=== PATIENT | male | born 1960 | race African-American/Black ===

== ENCOUNTER 2017-08-08 15:33 | Emergency (ER) | payer BC ==
--- NOTE | 2017-08-08 15:44 | PDOC ---
Rapid Medical Evaluation Chief Complaint: Shortness of Breath Medical Evaluation: Allergies Allergy/AdvReac Type Severity Reaction Status Date / Time No Known Allergies Allergy Verified 08/08/17 15:41 08/08/17 15:42 I have performed a brief in-person evaluation of this patient. The patient presents with a chief complaint of: cough w/ congestion and hoarseness. H/o DM, amylodosis Pertinent physical exam findings: Stable w/ clear chest/lungs I have ordered the following:cxr The patient will proceed to the ED for further evaluation.
[2017-08-08 15:45] VITALS: BP 157/96; PULSE 83; TEMP 97.9; BMI 37.8
[2017-08-08] MEDS ORDERED: ALBUTEROL SO4 2.5/IPRATROPIUM 0.5 INH SOL 3 ML VIAL.NEB. NEB ONE ×2 (17:10→17:14)
--- NOTE | 2017-08-08 17:16 | PDOC ---
History of Present Illness - General Chief Complaint: Shortness of Breath Stated Complaint: SOB, COUGH Time Seen by Provider: 08/08/17 17:00 History Source: Patient Exam Limitations: No Limitations - History of Present Illness Initial Comments: 08/08/17 17:11 56 yr male IDDM, HTN, high cholesterol c/o cough chest congestion for 3 days no fever no chest pain. Timing/Duration: reports: getting worse Severity: reports: moderate Past History - Past Medical History Allergies/Adverse Reactions: Allergies Allergy/AdvReac Type Severity Reaction Status Date / Time No Known Allergies Allergy Verified 08/08/17 15:41 Home Medications: Ambulatory Orders Albuterol Sulfate Inhaler - [Ventolin HFA Inhaler -] 1 - 2 inh PO Q4H #1 inhaler 08/08/17 Amlodipine Bes/Olmesartan Med [Natalia 10-40 mg Tablet] 1 each PO DAILY 08/08/17 Benzonatate [Tessalon Pearls -] 200 mg PO TID PRN #42 cap 08/08/17 Brimonidine Tartrate/Timolol [Combigan Eye Drops] 5 ml OP ASDIR 08/08/17 Furosemide [Lasix -] 40 mg PO DAILY 08/08/17 Gabapentin 300 mg PO TID 08/08/17 Hydrocortisone 2.5% Lotion [Hytone 2.5% Lotion -] 1 applic TP BID #1 bottle Hydroxyzine HCl [Atarax -] 25 mg PO TID PRN #21 tablet 08/08/17 Insulin (Novolog) [Novolog] 0 units SQ BID 08/08/17 CVA: No COPD: No DVT: No Diabetes: Yes HTN: Yes Hypercholesterolemia: Yes Other medical history: Amyloidosis - Immunization History Immunization Up to Date: Yes - Suicide/Smoking/Psychosocial Hx Smoking Status: No Smoking History: Never smoked Have you smoked in the past 12 months: No Number of Cigarettes Smoked Daily: 0 Information on smoking cessation initiated: No Hx Alcohol Use: No Drug/Substance Use Hx: No Substance Use Type: None Respiratory Specific PMHX - Complaint Specific PMHX Angina: No Bronchitis: No Pneumonia: No Pulmonary Embolus: No TB (Tuberculosis): No Review of Systems - Review of Systems Able to Perform ROS?: Yes Is the patient limited Spanish proficient: No Constitutional: No: Symptoms Reported HEENTM: No: Symptoms Reported Respiratory: Yes: See HPI, Cough Cardiac (ROS): No: Symptoms Reported ABD/GI: No: Symptoms Reported : No: Symptoms Reported Musculoskeletal: No: Symptoms Reported *Physical Exam - Vital Signs Last Vital Signs Temp Pulse Resp BP Pulse Ox 97.9 F 83 16 157/96 97 08/08/17 15:41 08/08/17 15:41 08/08/17 15:41 08/08/17 15:41 08/08/17 15:41 - Physical Exam General Appearance: Yes: Nourished, Appropriately Dressed HEENT: positive: EOMI, CAMILA, TMs Normal, Pharynx Normal Neck: positive: Supple. negative: Tender Respiratory/Chest: positive: Lungs Clear, Normal Breath Sounds, Decreased Breath Sounds Cardiovascular: positive: Regular Rhythm, Regular Rate Gastrointestinal/Abdominal: positive: Normal Bowel Sounds Musculoskeletal: positive: Normal Inspection Extremity: positive: Normal Capillary Refill, Normal Inspection, Normal Range of Motion Integumentary: positive: Normal Color, Dry, Warm, Rash (upper back with fine maculopapular erythemtous rash ) Neurologic: positive: Fully Oriented, Alert, Normal Mood/Affect, Normal Response , Motor Strength 5/5 Medical Decision Making - Medical Decision Making 08/08/17 17:17 cc: cough chest congestion itchy rash to upper back for 2 days will give duoneb, decreased BS bilaterally CXR ordered from triage. 08/08/17 17:33 lungs CTA improved after the nebulizer dc inst given all questions asked and answered at discharge pt agrees with the plan of care *DC/Admit/Observation/Transfer Diagnosis at time of Disposition: Bronchitis - Discharge Dispostion Disposition: HOME Condition at time of disposition: Good - Prescriptions Prescriptions: Albuterol Sulfate Inhaler - [Ventolin HFA Inhaler -] 1 - 2 inh PO Q4H #1 inhaler Benzonatate [Tessalon Pearls -] 200 mg PO TID PRN #42 cap PRN Reason: Cough Hydrocortisone 2.5% Lotion [Hytone 2.5% Lotion -] 1 applic TP BID #1 bottle Hydroxyzine HCl [Atarax -] 25 mg PO TID PRN #21 tablet PRN Reason: itching - Referrals Referrals: Angel Keith MD [Primary Care Provider] - - Patient Instructions Additional Instructions: use the inhaler as directed for the next fee days take the cough medicine as directed drink pleanty of fluids to stay hydrated follow with your doctor if symptoms are worsening or persist - Post Discharge Activity
== END 2017-08-08 17:30 | disposition home or self-care (01) ==
LOC: JER 15:33 → JERFT 15:33
PROC: 3E0F7GC Introduction of Other Therapeutic Substance into Respiratory Tract, Via Natural or Artificial Opening (ICD-10-PCS; principal; 2017-08-08)
DX: J20.9 Acute bronchitis, unspecified (principal); I10 Essential (primary) hypertension; E10.9 Type 1 diabetes mellitus without complications; Z79.4 Long term (current) use of insulin; E78.00 Pure hypercholesterolemia, unspecified; E85.9 Amyloidosis, unspecified
CPT/HCPCS: 71020-TC; 99281-25

== ENCOUNTER 2018-05-28 07:12 | Day surgery (SDC) | payer BC ==
[2018-05-27 14:05] VITALS: BMI 38.8
[2018-05-28 08:33] VITALS: TEMP 97.7
[2018-05-28 08:59] VITALS: PULSE 79
[2018-05-28 12:03] VITALS: BP 118/69
--- NOTE | 2018-05-29 14:48 | PATH ---
Surgical Pathology Report Patient Name: YINKA GAMEZ [facility]. Rec. #: [id number] /Age/Gender: 1960 (Age: 57) / M Account: [id number] Location: U-ENDOSCOPY Taken: 05/28/2018 Received: 05/28/2018 Reported: 05/29/2018 Physicians: Kam Strauss M.D. Specimen(s) Received A: BX ANTRUM B: BX CECUM POLYP Clinical History Heartburn, colon screening, family history of colon cancer Postoperative diagnosis: Hiatal hernia, gastritis, colon polyp Final Diagnosis A. STOMACH, ANTRUM, BIOPSY: GASTRIC ANTRAL MUCOSA WITH SEVERE CHRONIC ACTIVE GASTRITIS. IMMUNOHISTOCHEMICAL STAIN FOR H. PYLORI IS POSITIVE (NUMEROUS). B. CECUM, POLYP, BIOPSY: TUBULAR ADENOMA. Electronically Signed Kenya Camara M.D. Gross Description A. Received in formalin, labeled "antrum" are 2 syed, irregular portions of soft tissue averaging 0.4 cm. in greatest dimension. The specimens are submitted in toto in one cassette. B. Received in formalin, labeled "polyp cecum" are 3 syed, irregular portions of soft tissue ranging from 0.2-0.3 cm. in greatest dimension. The specimens are submitted in toto in one cassette. /05/28/201805/28/2018
== END 2018-05-28 10:15 | disposition home or self-care (01) ==
LOC: JASU-ENDO 07:12
PROVIDERS: ATTEND Internal Medicine Gastroenterology
PROC: 0DB68ZX Excision of Stomach, Via Natural or Artificial Opening Endoscopic, Diagnostic (ICD-10-PCS; 2018-05-28)
PROC: 0DBH8ZX Excision of Cecum, Via Natural or Artificial Opening Endoscopic, Diagnostic (ICD-10-PCS; principal; 2018-05-28 08:00)
DX: Z12.11 Encounter for screening for malignant neoplasm of colon (principal); Z80.0 Family history of malignant neoplasm of digestive organs; D12.0 Benign neoplasm of cecum; K25.9 Gastric ulcer, unspecified as acute or chronic, without hemorrhage or perforation; K44.9 Diaphragmatic hernia without obstruction or gangrene
CPT/HCPCS: 88305-TC; 88342-TC

== ENCOUNTER 2021-06-02 05:12 | Day surgery (SDC) | payer BC ==
[2021-06-01 12:06] VITALS: BMI 31.2
[2021-06-02 09:40] VITALS: PULSE 46
[2021-06-02 10:27] VITALS: BP 128/73; TEMP 97.9
== END 2021-06-02 10:29 | disposition home or self-care (01) ==
LOC: JASU-ENDO 05:12
PROVIDERS: ATTEND Internal Medicine Gastroenterology
PROC: 0DJD8ZZ Inspection of Lower Intestinal Tract, Via Natural or Artificial Opening Endoscopic (ICD-10-PCS; principal; 2021-06-02 09:45)
DX: Z12.11 Encounter for screening for malignant neoplasm of colon (principal); Z80.0 Family history of malignant neoplasm of digestive organs; K64.8 Other hemorrhoids; I10 Essential (primary) hypertension; E11.9 Type 2 diabetes mellitus without complications